=== PATIENT | male | born 1970 | race Hispanic/Latino ===

== ENCOUNTER → 2021-04-29 | Outpatient (CLI) | payer OTHER | END | disposition home or self-care (01) | LOC: RAH 08:57 | PROVIDERS: ATTEND Family Medicine | DX: M17.11 Unilateral primary osteoarthritis, right knee (principal); M25.761 Osteophyte, right knee; M25.461 Effusion, right knee; M25.80 Other specified joint disorders, unspecified joint; M51.36 Other intervertebral disc degeneration, lumbar region; M48.07 Spinal stenosis, lumbosacral region | CPT/HCPCS: 71046; 72100; 73560 ==

== ENCOUNTER 2022-08-24 22:12 | Emergency (ER) | payer OTHER ==
[~2022-08-24] VITALS: Ht 182.9 cm; Wt 197.3 kg
[2022-08-24 22:38] VITALS: BP 149/75
[2022-08-24] MEDS: LIDOCAINE HCL 1% 20 ML VIAL ONE (23:04)
[2022-08-24] MEDS: TETANUS/DIPHTHERIA TOXOID [ADULT] 0.5 ML VIAL IM ONE (23:05)
[2022-08-24] MEDS ORDERED: AMOX1TAB16 PO (23:07)
[2022-08-24] MEDS ORDERED: BACI30OI6 TP (23:07)
== END 2022-08-24 23:59 | disposition home or self-care (01) ==
LOC: EDH 22:12
DX: S61.451A Open bite of right hand, initial encounter (principal); I11.0 Hypertensive heart disease with heart failure; I50.9 Heart failure, unspecified; E11.9 Type 2 diabetes mellitus without complications; E78.00 Pure hypercholesterolemia, unspecified; W54.0XXA Bitten by dog, initial encounter; Y93.89 Activity, other specified; Y92.89 Other specified places as the place of occurrence of the external cause; Y99.8 Other external cause status
CPT/HCPCS: 12002; 73120; 90471; 90714